=== PATIENT | female | born 1965 | race Two or more races ===

== ENCOUNTER 2023-02-15 05:55 | Inpatient (IN) | payer BC ==
[~2023-02-15] VITALS: Ht 157.5 cm; Wt 94.4 kg
[2023-02-15] VITALS (7 sets, daily range): BP systolic 143–158; BP diastolic 78–94; PULSE 85–116; RESP 17–20; TEMP 97.6–98.1; O2SAT 92–96
[2023-02-15] MEDS ORDERED: ceFAZolin 2 GM/D5W100ml 100 ML IV ONE (06:17)
[2023-02-15] MEDS ORDERED: TRANEXAMIC ACID 20 ML ONE (06:42)
[2023-02-15] MEDS ORDERED: MORPHINE SULFATE INJ 2 MG/ml SYRG IV PRN ×3 (07:00→10:00)
[2023-02-15] MEDS ORDERED: METOCLOPRAMIDE HCL 5MG/ml INJ 2ml VIAL IV PRN (07:00)
[2023-02-15] MEDS ORDERED: ACCU-CHEK COMFORT CURVE STRIP VI ONE (07:00)
[2023-02-15] MEDS ORDERED: HYDROmorphone HCL 2 MG/ML VL/or syr IV PRN ×2 (07:00)
[2023-02-15] MEDS ORDERED: SUCCINYLCHOLINE CHLORIDE 20 MG/ML 10ML VIAL IV ONE (07:04)
[2023-02-15] MEDS ORDERED: ROCURONIUM 10MG/ML 10ML VIAL IV ONE (07:04)
[2023-02-15] MEDS ORDERED: LIDOCAINE 1% INJ PF 5ML AMP ONE (07:08)
[2023-02-15] MEDS ORDERED: MEPERIDINE HCL (25 MG/ML) 1ML VIAL ONE (07:19)
[2023-02-15] MEDS ORDERED: PROPOFOL 10 MG/ML 20 ML IV ONE ×3 (07:20→09:36)
[2023-02-15] MEDS ORDERED: ONDANSETRON HCL 4 MG/2 ML VIAL ONE ×2 (07:20→07:33)
[2023-02-15] MEDS ORDERED: SODIUM CHLORIDE LOCK 30 ML ONE (07:20)
[2023-02-15] MEDS ORDERED: LIDOCAINE 2% JELLY 11ml (GLYDO) ONE (07:20)
[2023-02-15] MEDS ORDERED: NEOSTIGMINE 1 MG/ML INJ (10mg/10ML VIAL) ONE (07:20)
[2023-02-15] MEDS ORDERED: MIDAZOLAM HCL 2MG/2ML 2ml VIAL (1mg/ml) ONE (07:20)
[2023-02-15] MEDS ORDERED: GLYCOPYRROLATE 0.2 MG/ML 1ML VIAL ONE (07:20)
[2023-02-15] MEDS ORDERED: fentaNYL CITRATE 100 MCG/2 ML VL ONE (07:20)
[2023-02-15] MEDS ORDERED: DexAMETHasone SOD PHOS 10MG/1ML VIAL INJ ONE (07:33)
[2023-02-15] MEDS ORDERED: BACITRACIN TOP OINT 1 UD PKG TOP ONE (09:58)
[2023-02-15] MEDS ORDERED: DOCUSATE SOD 100 MG CAP PO SCH (10:00)
[2023-02-15] MEDS ORDERED: D5W/SOD CHLO 0.9% 1,000 ML IV SCH (10:00)
[2023-02-15] MEDS ORDERED: ceFAZolin 1GM/50ML 50 ML IV SCH (10:00)
[2023-02-15] MEDS ORDERED: NITROGLYCERIN 0.4 MG SL TAB SL PRN (10:00)
[2023-02-15] MEDS: DOCUSATE SOD 100 MG CAP PO SCH ×2 (10:22→20:35)
[2023-02-15] MEDS: LACTATED RINGER'S 1,000 ML IV SCH ×2 (10:45→20:38)
[2023-02-15] MEDS ORDERED: DEXTROSE (50%) 50ML SYRG IV PRN (10:45)
[2023-02-15] MEDS: CYCLOBENZAPRINE HCL 10 MG TAB PO SCH ×2 (11:12→20:35)
[2023-02-15] MEDS: InsuLIN REG 1unit/0.01ml Soln (100units/ml) SC SCH ×3 (11:30→22:37)
[2023-02-15] MEDS: ACCU-CHEK COMFORT CURVE STRIP VI SCH ×3 (11:30→22:26)
[2023-02-15] MEDS: ceFAZolin 1GM/50ML 50 ML IV SCH ×2 (14:50→23:35)
[2023-02-15] MEDS: ACETAMINOPHEN 325 MG TAB PO PRN (14:51)
[2023-02-15] MEDS ORDERED: ACET120S38 PR (17:41)
[2023-02-15] MEDS ORDERED: METF-370 PO (17:41)
[2023-02-15] MEDS ORDERED: CHOL20007 PO (17:41)
[2023-02-15] MEDS ORDERED: GLUC750T18 PO (17:41)
[2023-02-15] MEDS ORDERED: MULT-1058 PO (17:41)
[2023-02-15] MEDS ORDERED: OMEP20TA PO (17:41)
[2023-02-15] MEDS ORDERED: ROSU1TAB12 PO (17:41)
[2023-02-15] MEDS ORDERED: EMPA1TAB3 PO (17:41)
[2023-02-15] MEDS ORDERED: ASPI325T4 PO (17:41)
[2023-02-15] MEDS ORDERED: LISI-275 PO (17:41)
[2023-02-15] MEDS ORDERED: IBUP-1455 PO (17:41)
[2023-02-15] MEDS ORDERED: FOLI-119 PO (17:41)
[2023-02-15] MEDS ORDERED: ASCO500C49 PO (17:41)
[2023-02-15] MEDS ORDERED: GLIP5TAB12 PO (17:41)
[2023-02-15] MEDS ORDERED: CALC1TAB92 PO (17:41)
[2023-02-15] MEDS ORDERED: LISINOPRIL 5 MG TAB PO ONE (17:45)
[2023-02-15] MEDS: HYDROcodone-ACET 10/325MG TAB PO PRN (20:36)
[2023-02-16] VITALS (7 sets, daily range): BP systolic 124–150; BP diastolic 71–92; PULSE 101–119; RESP 18–20; TEMP 97.8–98.8; O2SAT 92–97
[2023-02-16] MEDS: LACTATED RINGER'S 1,000 ML IV SCH ×2 (06:45→10:02)
[2023-02-16] MEDS: HYDROcodone-ACET 10/325MG TAB PO PRN ×3 (06:56→23:03)
[2023-02-16] MEDS: CYCLOBENZAPRINE HCL 10 MG TAB PO SCH ×3 (06:56→23:03)
[2023-02-16] MEDS: InsuLIN REG 1unit/0.01ml Soln (100units/ml) SC SCH ×4 (07:00→23:16)
[2023-02-16] MEDS: ACCU-CHEK COMFORT CURVE STRIP VI SCH ×4 (07:04→23:04)
[2023-02-16] MEDS: ASPirin 81 mg TAB PO SCH (09:44)
[2023-02-16] MEDS: LISINOPRIL 5 MG TAB PO SCH (09:45)
[2023-02-16] MEDS: DOCUSATE SOD 100 MG CAP PO SCH ×2 (09:45→23:02)
[2023-02-16] MEDS: EMPAGLIFLOZIN 10 MG TAB PO SCH (09:47)
[2023-02-16] MEDS: ACETAMINOPHEN 325 MG TAB PO PRN (09:53)
[2023-02-16] MEDS: ONDANSETRON HCL 4 MG/2 ML VIAL IV PRN (23:16)
[2023-02-17 05:00] VITALS: BP 130/84; PULSE 108; RESP 20; TEMP 98.2; O2SAT 93
[2023-02-17] MEDS: ONDANSETRON HCL 4 MG/2 ML VIAL IV PRN ×5 (06:38→21:55)
[2023-02-17] MEDS: HYDROcodone-ACET 10/325MG TAB PO PRN ×2 (06:38→10:10)
[2023-02-17] MEDS: InsuLIN REG 1unit/0.01ml Soln (100units/ml) SC SCH ×4 (06:39→22:01)
[2023-02-17] MEDS: ACCU-CHEK COMFORT CURVE STRIP VI SCH ×4 (06:39→21:55)
[2023-02-17] MEDS: CYCLOBENZAPRINE HCL 10 MG TAB PO SCH ×3 (06:39→21:54)
[2023-02-17 07:03] LABS: Basophils # (auto) 0.1 10 ^3/uL (0-0.2); Basophils % (auto) 0.6 % (0.0-2.0); Eosinophils # (auto) 0.1 10 ^3/uL (0-0.8); Eosinophils % (auto) 0.7 % (0.0-7.0); Hematocrit 44.4 % (36.0-46.0); Hemoglobin 14.5 g/dL (12.2-16.2); Lymphocytes # (auto) 2.4 10 ^3/uL (0.4-5.4); Lymphocytes % (auto) 21.5 % (10.0-50.0); Mean Corpuscular Hemoglobin 31.2 pg (28.0-32.0); Mean Corpuscular Hgb Conc. 32.7 g/dL (32.0-36.0); Mean Corpuscular Volume 95.2 fL (80.0-100.0); Monocytes # (auto) 1.5 10 ^3/uL (0-1.3); Monocytes % (auto) 13.3 % (0.0-12.0); Neutrophils # (auto) 7.1 10 ^3/uL (1.6-8.6); Neutrophils % (auto) 63.9 % (37.0-80.0); Red Blood Cells 4.67 10^6/uL (4.0-5.20); Red Cell Distribution Width 13.8 % (11.8-14.3); White Blood Cell 11.1 10^3/uL (4.4-10.8)
[2023-02-17 07:10] LABS: Calcium 9.4 mg/dL (8.5-10.1); Chloride 98 mmol/L (98-107); Potassium 4.3 mmol/L (3.5-5.1); Sodium 133 mmol/L (136-145)
[2023-02-17 07:16] LABS: BUN/Creatinine Ratio 14.1 (10.0-20.0); Blood Urea Nitrogen 9 mg/dL (9-23); Glucose 111 mg/dL (74-106)
[2023-02-17 07:30] VITALS: PULSE 102; RESP 20
[2023-02-17 07:38] LABS: Anion Gap 8 (5-15); Carbon Dioxide 27 mmol/L (20-30)
[2023-02-17 09:00] VITALS: BP 113/81; PULSE 104; RESP 16; TEMP 98.1; O2SAT 92
[2023-02-17] MEDS: EMPAGLIFLOZIN 10 MG TAB PO SCH (10:10)
[2023-02-17] MEDS: ASPirin 81 mg TAB PO SCH (10:10)
[2023-02-17] MEDS: LISINOPRIL 5 MG TAB PO SCH (10:11)
[2023-02-17] MEDS: DOCUSATE SOD 100 MG CAP PO SCH ×2 (10:11→21:54)
[2023-02-17] MEDS: ACETAMINOPHEN 325 MG TAB PO PRN ×3 (13:20→18:12)
[2023-02-17 13:26] VITALS: BP_SYST 113; BP_SYST 122; BP_DIAS 81; BP_DIAS 83; PULSE 104; PULSE 112; RESP 16; TEMP 98.1; TEMP 98.7; O2SAT 92; O2SAT 94
[2023-02-17] MEDS ORDERED: LACTULOSE 20Gm/30ML SOLN PO ONE (15:30)
[2023-02-17] MEDS ORDERED: LACTULOSE 20Gm/30ML SOLN PO PRN (15:30)
[2023-02-17 20:00] VITALS: PULSE 111; PULSE 118; RESP 19; O2SAT 91
[2023-02-17 22:00] VITALS: BP 139/83; PULSE 111; RESP 19; TEMP 97.6; O2SAT 91
[2023-02-18] VITALS (7 sets, daily range): BP systolic 89–133; BP diastolic 52–94; PULSE 104–117; RESP 18–20; TEMP 98–98.6; O2SAT 92–97
[2023-02-18] MEDS: CYCLOBENZAPRINE HCL 10 MG TAB PO SCH ×3 (06:24→21:07)
[2023-02-18] MEDS: ACCU-CHEK COMFORT CURVE STRIP VI SCH ×4 (06:25→21:10)
[2023-02-18] MEDS: InsuLIN REG 1unit/0.01ml Soln (100units/ml) SC SCH ×4 (06:25→21:13)
[2023-02-18] MEDS: ONDANSETRON HCL 4 MG/2 ML VIAL IV PRN (06:26)
[2023-02-18] MEDS: ACETAMINOPHEN 325 MG TAB PO PRN ×2 (08:39→21:07)
[2023-02-18] MEDS ORDERED: LACTULOSE 20Gm/30ML SOLN PO SCH (10:00)
[2023-02-18] MEDS: DOCUSATE SOD 100 MG CAP PO SCH ×2 (10:14→21:07)
[2023-02-18] MEDS: ASPirin 81 mg TAB PO SCH (10:14)
[2023-02-18] MEDS: LISINOPRIL 5 MG TAB PO SCH (10:14)
[2023-02-18] MEDS: EMPAGLIFLOZIN 10 MG TAB PO SCH (10:15)
[2023-02-18] MEDS: CALCIUM CARB 500 MG CHEW TAB PO SCH ×2 (15:58→21:08)
[2023-02-19 05:00] VITALS: BP 122/83; PULSE 109; RESP 19; TEMP 98; O2SAT 92
[2023-02-19] MEDS: CYCLOBENZAPRINE HCL 10 MG TAB PO SCH ×2 (06:02→13:34)
[2023-02-19] MEDS: CALCIUM CARB 500 MG CHEW TAB PO SCH ×2 (06:02→13:34)
[2023-02-19] MEDS: ACETAMINOPHEN 325 MG TAB PO PRN (06:02)
[2023-02-19] MEDS: ACCU-CHEK COMFORT CURVE STRIP VI SCH ×2 (06:03→10:44)
[2023-02-19] MEDS: InsuLIN REG 1unit/0.01ml Soln (100units/ml) SC SCH ×2 (06:16→10:44)
[2023-02-19 08:00] VITALS: PULSE 97
[2023-02-19 08:56] VITALS: BP 108/71; PULSE 101; RESP 20; TEMP 98; O2SAT 100
[2023-02-19] MEDS: DOCUSATE SOD 100 MG CAP PO SCH (09:34)
[2023-02-19] MEDS: LISINOPRIL 5 MG TAB PO SCH (10:13)
[2023-02-19] MEDS: ASPirin 81 mg TAB PO SCH (10:13)
[2023-02-19] MEDS: EMPAGLIFLOZIN 10 MG TAB PO SCH (10:14)
[2023-02-19 11:47] VITALS: BP 108/71; PULSE 101; RESP 20; TEMP 98; O2SAT 100
[2023-02-19 12:32] VITALS: BP 118/83; PULSE 103; RESP 20; TEMP 98; O2SAT 97
== END 2023-02-19 13:50 | disposition home health service (06) | DRG 472 ==
LOC: SUR 05:55 → TELE 09:58 → TELE-WESTW 12:09
PROVIDERS: ADMIT Orthopaedic Surgery; ATTEND Hospitalist
PROC: 0RG20A0 Fusion of 2 or more Cervical Vertebral Joints with Interbody Fusion Device, Anterior Approach, Anterior Column, Open Approach (ICD-10-PCS; principal; 2023-02-16)
PROC: 01N10ZZ Release Cervical Nerve, Open Approach (ICD-10-PCS; 2023-02-16)
PROC: 00NW0ZZ Release Cervical Spinal Cord, Open Approach (ICD-10-PCS; 2023-02-16)
PROC: 4A11X4G Monitoring of Peripheral Nervous Electrical Activity, Intraoperative, External Approach (ICD-10-PCS; 2023-02-16)
DX: M48.02 Spinal stenosis, cervical region (principal); M50.023 Cervical disc disorder at C6-C7 level with myelopathy; E11.9 Type 2 diabetes mellitus without complications; I11.9 Hypertensive heart disease without heart failure; Z80.3 Family history of malignant neoplasm of breast; Z82.49 Family history of ischemic heart disease and other diseases of the circulatory system; Z83.3 Family history of diabetes mellitus; M50.123 Cervical disc disorder at C6-C7 level with radiculopathy
CPT/HCPCS: 36415; 72040; 76000; 80048; 82962; 85025; 86850; 86900; 86901; 97110; 97116; 97163; 97530; G0378; J0330; J1100; J1815; J2250; J2405; J2704

== ENCOUNTER 2023-08-14 08:01 | Inpatient (IN) | payer BC ==
[~2023-08-14] VITALS: Ht 157.5 cm; Wt 94.5 kg
[~2023-08-14 08:01] MED LIST: ACET120S38 PR; ASCO500C49 PO; ASPI-498 OR; CALC1TAB92 PO; CHOL20007 PO; EMPA1TAB3 PO; FOLI-119 PO; GLIP5TAB21 PO; GLUC750T18 PO; IBUP-1455 PO; LISI-275 PO; METF-370 PO; MULT-1058 PO; OMEP20TA PO; ROSU5TAB24 PO; SEMA2INJ3 SC
[2023-08-14] MEDS: ceFAZolin 2 GM/D5W50ml 50 ML IV ONE (09:00)
[2023-08-14] MEDS: levoFLOXacin 750MG 150 ML IV ONE (09:30)
[2023-08-14] MEDS ORDERED: fentaNYL CITRATE 100 MCG/2 ML VL ONE ×3 (09:48→13:27)
[2023-08-14] MEDS ORDERED: PROPOFOL 10 MG/ML 20 ML IV ONE ×3 (09:49→13:11)
[2023-08-14] MEDS: SUCCINYLCHOLINE CHLORIDE 20 MG/ML 10ML VIAL IV ONE (10:00)
[2023-08-14] MEDS: TRANEXAMIC ACID 20 ML ONE (10:45)
[2023-08-14] MEDS ORDERED: MIDAZOLAM HCL 2MG/2ML 2ml VIAL (1mg/ml) ONE (10:50)
[2023-08-14] MEDS: LIDOCAINE W/ EPINEPHRINE 1% 20ML VIAL ONE (12:11)
[2023-08-14] MEDS ORDERED: DexAMETHasone SOD PHOS 10MG/1ML VIAL INJ ONE (12:14)
[2023-08-14] MEDS ORDERED: ONDANSETRON HCL 4 MG/2 ML VIAL ONE (12:14)
[2023-08-14] MEDS ORDERED: ePHEDrine SULFATE 50 MG/ML AMP ONE (12:34)
[2023-08-14] MEDS ORDERED: MEPERIDINE HCL (50 MG/ML) 1 ML VIAL ONE (13:21)
[2023-08-14] MEDS ORDERED: MEPERIDINE HCL (25 MG/ML) 1ML VIAL ONE (14:17)
[2023-08-14 14:41] VITALS: O2SAT 100
[2023-08-14] MEDS ORDERED: ONDANSETRON HCL 4 MG/2 ML VIAL IV PRN (14:45)
[2023-08-14] MEDS ORDERED: MORPHINE SULFATE INJ 2 MG/ml SYRG IV PRN (14:45)
[2023-08-14] MEDS ORDERED: NITROGLYCERIN 0.4 MG SL TAB SL PRN (14:45)
[2023-08-14] MEDS ORDERED: HYDROmorphone HCL 2 MG/ML VL/or syr IV PRN (15:00)
[2023-08-14] MEDS: ONDANSETRON HCL 4 MG/2 ML VIAL IV ONE (15:00)
[2023-08-14] MEDS ORDERED: MEPERIDINE HCL (25 MG/ML) 1ML VIAL IV PRN (15:00)
[2023-08-14] MEDS: CYCLOBENZAPRINE HCL 10 MG TAB PO SCH (17:44)
[2023-08-14 19:36] VITALS: BP 158/75; PULSE 97; RESP 16; TEMP 98.9; O2SAT 100
[2023-08-14 20:00] VITALS: PULSE 87; RESP 18; O2SAT 97
[2023-08-14 21:00] VITALS: BP 122/71; PULSE 103; RESP 18; TEMP 97.7; O2SAT 90
[2023-08-14] MEDS: D5W/SOD CHLO 0.9% 1,000 ML IV SCH (21:08)
[2023-08-14] MEDS: ceFAZolin 1GM/50ML 50 ML IV SCH (21:19)
[2023-08-14] MEDS ORDERED: DOCUSATE SOD 100 MG CAP PO SCH (22:00)
[2023-08-15] VITALS (7 sets, daily range): BP systolic 101–126; BP diastolic 60–74; PULSE 93–113; RESP 18–20; TEMP 98–99.8; O2SAT 90–95
[2023-08-15] MEDS: HYDROcodone-ACET 10/325MG TAB PO PRN (08:13)
[2023-08-15] MEDS: MORPHINE SULFATE INJ 2 MG/ml SYRG IV PRN (09:59)
[2023-08-15] MEDS: CARISOPRODOL 350 MG TAB PO SCH (12:05)
[2023-08-16 01:00] VITALS: BP 119/68; PULSE 109; RESP 18; TEMP 98.9; O2SAT 90
[2023-08-16] MEDS: ACETAMINOPHEN 325 MG TAB PO PRN (03:10)
[2023-08-16 05:00] VITALS: BP 137/85; PULSE 106; RESP 18; TEMP 98.7; O2SAT 92
[2023-08-16 08:35] VITALS: BP 132/83; PULSE 100; RESP 19; TEMP 98.2; O2SAT 93
[2023-08-16 12:30] VITALS: BP 119/80; PULSE 104; RESP 19; TEMP 97.9; O2SAT 94
[2023-08-16 16:30] VITALS: BP 133/88; PULSE 110; RESP 19; TEMP 99.4; O2SAT 94
[2023-08-16 17:57] LABS: Chloride 103 mmol/L (98-107); Potassium 3.8 mmol/L (3.5-5.1); Sodium 133 mmol/L (136-145)
[2023-08-16 17:58] LABS: Anion Gap 3 (5-15); Carbon Dioxide 27 mmol/L (20-30)
[2023-08-16 17:59] LABS: Calcium 8.7 mg/dL (8.5-10.1)
[2023-08-16 18:03] LABS: Blood Urea Nitrogen 7 mg/dL (9-23); Glucose 208 mg/dL (74-106)
[2023-08-16 18:05] LABS: Basophils # (auto) 0.1 10 ^3/uL (0-0.2); Basophils % (auto) 0.6 % (0.0-2.0); Eosinophils # (auto) 0.1 10 ^3/uL (0-0.8); Eosinophils % (auto) 0.5 % (0.0-7.0); Hematocrit 38.6 % (36.0-46.0); Hemoglobin 12.7 g/dL (12.2-16.2); Lymphocytes % (auto) 17.9 % (10.0-50.0); Mean Corpuscular Hemoglobin 29.9 pg (28.0-32.0); Mean Corpuscular Hgb Conc. 32.8 g/dL (32.0-36.0); Mean Corpuscular Volume 91.3 fL (80.0-100.0); Monocytes # (auto) 1.1 10 ^3/uL (0-1.3); Monocytes % (auto) 10.1 % (0.0-12.0); Neutrophils # (auto) 8.1 10 ^3/uL (1.6-8.6); Neutrophils % (auto) 70.9 % (37.0-80.0); Nucleated Red Blood Cells % 0.1 %; Red Blood Cells 4.23 10^6/uL (4.0-5.20); Red Cell Distribution Width 14.4 % (11.8-14.3); White Blood Cell 11.4 10^3/uL (4.4-10.8)
[2023-08-16 21:28] VITALS: BP 118/75; PULSE 105; RESP 19; TEMP 98.3; O2SAT 95
[2023-08-17 01:09] VITALS: BP 131/80; PULSE 105; RESP 19; TEMP 98.2; O2SAT 92
[2023-08-17 05:00] VITALS: BP 123/76; PULSE 101; RESP 19; TEMP 97.6; O2SAT 92
[2023-08-17 07:59] LABS: Urine Bacteria None Seen /hpf (None Seen)
[2023-08-17 08:20] LABS: Urine Blood Negative /uL (Negative); Urine Clarity Clear (Clear); Urine Color Light-Yellow (Yellow); Urine Protein, UAD Negative (Negative); Urine Specific Gravity 1.018 (1.001-1.035); Urine Urobilinogen Normal (Negative); Urine WBC 2 /hpf (0 - 5)
[2023-08-17 09:00] VITALS: BP 124/83; PULSE 104; RESP 16; TEMP 98.5; O2SAT 98
[2023-08-17 13:00] VITALS: BP 138/87; PULSE 111; RESP 14; TEMP 99.2; O2SAT 95
[2023-08-17 17:00] VITALS: BP 138/80; PULSE 96; RESP 14; TEMP 98.8; O2SAT 96
[2023-08-17 21:00] VITALS: BP 125/79; PULSE 93; RESP 20; TEMP 98.3; O2SAT 95
[2023-08-18 01:00] VITALS: BP 119/69; PULSE 89; RESP 18; TEMP 98; O2SAT 93
[2023-08-18 05:00] VITALS: BP 123/73; PULSE 89; RESP 20; TEMP 98.4; O2SAT 96
[2023-08-18 08:49] VITALS: BP 132/87; PULSE 104; RESP 20; TEMP 98.8; O2SAT 94
[2023-08-18 12:47] VITALS: BP 128/81; PULSE 96; RESP 20; TEMP 98.9; O2SAT 94
[2023-08-18 17:43] VITALS: BP 151/81; PULSE 99; RESP 20; TEMP 98.1; O2SAT 97
[2023-08-18 21:00] VITALS: BP 110/77; PULSE 98; RESP 18; TEMP 98.6; O2SAT 92
[2023-08-19 01:00] VITALS: BP 128/81; PULSE 101; RESP 20; TEMP 98.2; O2SAT 96
[2023-08-19 05:00] VITALS: BP 115/76; PULSE 86; RESP 22; TEMP 98; O2SAT 97
[2023-08-19 08:59] VITALS: BP 130/82; PULSE 91; RESP 20; TEMP 98.3; O2SAT 92
[2023-08-19] MEDS: PANTOPRAZOLE 40 MG TAB PO SCH (11:05)
[2023-08-19] MEDS: ASCORBIC ACID 500 MG TAB PO SCH (11:05)
[2023-08-19] MEDS: LISINOPRIL 5 MG TAB PO SCH (11:07)
[2023-08-19] MEDS: CHOLECALCIFEROL (VITD3) 1,000UNIT=25mCg TAB PO SCH (11:08)
[2023-08-19] MEDS: MULTIPLE VITAMINS W/ MINERALS TAB PO SCH (11:08)
[2023-08-19] MEDS: EMPAGLIFLOZIN 10 MG TAB PO SCH (11:09)
[2023-08-19] MEDS: ATORVASTATIN 20 MG TAB PO SCH (11:10)
[2023-08-19] MEDS: FOLIC ACID 1 MG TAB PO SCH (11:10)
[2023-08-19] MEDS: ASPirin-EC 81 mg tab PO SCH (11:10)
[2023-08-19] MEDS: glipiZIDE 5 MG TAB PO SCH (11:10)
[2023-08-19] MEDS: METHYLSULFONYLMETHANE PO SCH (11:11)
[2023-08-19] MEDS: GLUCOSAMINE HCL PO SCH (11:11)
[2023-08-19] MEDS: [UNRECOGNIZED DRUG - OTHER] PO SCH (11:11)
[2023-08-19] MEDS: CALCIUM CARBONATE 600 MG PO SCH (11:11)
[2023-08-19 13:00] VITALS: BP 144/82; PULSE 93; RESP 20; TEMP 99.1; O2SAT 96
[2023-08-19] MEDS ORDERED: DEXTROSE (50%) 50ML SYRG IV PRN (16:15)
[2023-08-19] MEDS: ACCU-CHEK COMFORT CURVE STRIP VI SCH (17:17)
[2023-08-19] MEDS: InsuLIN REG 1unit/0.01ml Soln (100units/ml) SC SCH ×2 (17:17→21:23)
[2023-08-19 17:19] LABS: Basophils # (auto) 0.1 10 ^3/uL (0-0.2); Basophils % (auto) 1.1 % (0.0-2.0); Eosinophils # (auto) 0.4 10 ^3/uL (0-0.8); Eosinophils % (auto) 4.7 % (0.0-7.0); Hematocrit 38.1 % (36.0-46.0); Hemoglobin 12.9 g/dL (12.2-16.2); Lymphocytes # (auto) 2.1 10 ^3/uL (0.4-5.4); Lymphocytes % (auto) 27.5 % (10.0-50.0); Mean Corpuscular Hemoglobin 30.6 pg (28.0-32.0); Mean Corpuscular Hgb Conc. 33.7 g/dL (32.0-36.0); Mean Corpuscular Volume 90.8 fL (80.0-100.0); Monocytes # (auto) 0.8 10 ^3/uL (0-1.3); Monocytes % (auto) 10.1 % (0.0-12.0); Neutrophils # (auto) 4.3 10 ^3/uL (1.6-8.6); Neutrophils % (auto) 56.6 % (37.0-80.0); Nucleated Red Blood Cells % 0.1 %; Red Cell Distribution Width 14.6 % (11.8-14.3); White Blood Cell 7.6 10^3/uL (4.4-10.8)
[2023-08-19 17:39] LABS: Chloride 101 mmol/L (98-107); Sodium 136 mmol/L (136-145)
[2023-08-19 17:40] VITALS: BP 125/70; PULSE 99; RESP 20; TEMP 98.5; O2SAT 96
[2023-08-19 17:40] LABS: Anion Gap 4 (5-15); Calcium 9.8 mg/dL (8.7-10.4); Carbon Dioxide 31 mmol/L (20-30)
[2023-08-19 17:45] LABS: BUN/Creatinine Ratio 14.9 (10.0-20.0); Blood Urea Nitrogen 10 mg/dL (9-23); Glucose 129 mg/dL (74-106); Magnesium 1.9 mg/dL (1.6-2.6)
[2023-08-19 21:00] VITALS: BP 103/69; PULSE 88; RESP 20; TEMP 97.9; O2SAT 95
[2023-08-20] VITALS (7 sets, daily range): BP systolic 108–122; BP diastolic 63–79; PULSE 88–100; RESP 18–22; TEMP 97.8–98.4; O2SAT 94–98
[2023-08-20] MEDS ORDERED: ACETAMINOPHEN 120 MG RECT SUPP PR PRN (17:00)
[2023-08-20] MEDS ORDERED: IBUPROFEN 800 MG TAB PO SCH (22:00)
[2023-08-21] MEDS ORDERED: metFORMIN HYDROCHLORIDE 500 MG TAB PO SCH (10:00)
== END 2023-08-20 17:15 | disposition home or self-care (01) | DRG 455 ==
LOC: SUR 08:01 → OVERFLOW 14:36 → WEST WING 19:08
PROVIDERS: ADMIT Orthopaedic Surgery; ATTEND Orthopaedic Surgery
PROC: 0SG30AJ Fusion of Lumbosacral Joint with Interbody Fusion Device, Posterior Approach, Anterior Column, Open Approach (ICD-10-PCS; 2023-08-14)
PROC: 01NB0ZZ Release Lumbar Nerve, Open Approach (ICD-10-PCS; 2023-08-14)
PROC: 01NR0ZZ Release Sacral Nerve, Open Approach (ICD-10-PCS; 2023-08-14)
PROC: 00NY0ZZ Release Lumbar Spinal Cord, Open Approach (ICD-10-PCS; 2023-08-14)
PROC: 4A11X4G Monitoring of Peripheral Nervous Electrical Activity, Intraoperative, External Approach (ICD-10-PCS; 2023-08-14)
PROC: 0SG0071 Fusion of Lumbar Vertebral Joint with Autologous Tissue Substitute, Posterior Approach, Posterior Column, Open Approach (ICD-10-PCS; 2023-08-14)
PROC: 0SG3071 Fusion of Lumbosacral Joint with Autologous Tissue Substitute, Posterior Approach, Posterior Column, Open Approach (ICD-10-PCS; 2023-08-14)
PROC: 0SG00AJ Fusion of Lumbar Vertebral Joint with Interbody Fusion Device, Posterior Approach, Anterior Column, Open Approach (ICD-10-PCS; principal; 2023-08-14 11:11)
DX: M48.07 Spinal stenosis, lumbosacral region (principal); M47.812 Spondylosis without myelopathy or radiculopathy, cervical region; M51.36 Other intervertebral disc degeneration, lumbar region; E11.9 Type 2 diabetes mellitus without complications; I10 Essential (primary) hypertension; G89.29 Other chronic pain; M43.17 Spondylolisthesis, lumbosacral region; E78.5 Hyperlipidemia, unspecified; K21.9 Gastro-esophageal reflux disease without esophagitis; Z80.3 Family history of malignant neoplasm of breast; Z83.3 Family history of diabetes mellitus; Z82.49 Family history of ischemic heart disease and other diseases of the circulatory system; Z79.4 Long term (current) use of insulin
CPT/HCPCS: 36415; 80048; 81001; 82962; 83735; 85025; 86850; 86900; 86901; 97110; 97116; 97163; 97530; G0378; J0330; J1100; J1815; J2250; J2405; J2704; J7042